=== PATIENT | female | born 1985 | race Caucasian/White ===

== ENCOUNTER 2017-05-16 10:40 | Emergency (ER) | payer OTHER ==
[~2017-05-16] VITALS: Ht 157.5 cm; Wt 90.7 kg
[2017-05-16 10:52] VITALS: BP_SYST 126
--- NOTE | 2017-05-16 11:18 | NUR ---
ER at bedside examining patient.
[2017-05-16 11:32] LABS: BILIRUBIN,URINE NEGATIVE (NEGATIVE); BLOOD, URINE 3+ (NEGATIVE); CLARITY/URINE SL HAZY (CLEAR); COLOR,URINE YELLOW (YELLOW); GLUCOSE,URINE NEGATIVE (NEGATIVE); KETONES,URINE NEGATIVE (NEGATIVE); LEUKOCYTE ESTERASE ,URINE TRACE (NEGATIVE); NITRITE, URINE NEGATIVE (NEGATIVE); PH,URINE 7.5 (5.0-8.0); PROTEIN URINE NEGATIVE (NEGATIVE); UROBILINOGEN,URINE 0.2 (0.2-1.0)
[2017-05-16 11:36] LABS: BACTERIA,URINE FEW /HPF (None Seen); MUCUS,URINE 1+ /LPF (None Seen)
[2017-05-16 11:53] LABS: BASOPHILS % (AUTO) 0.4 % (0.0-2.0); EOSINOPHILS % (AUTO) 0.8 % (0.0-4.0); HEMATOCRIT 36.8 % (36-48); HEMOGLOBIN 12.3 g/dL (12.0-16.0); LYMPHOCYTES % (AUTO) 33.3 % (20.5-51.5); MEAN CORPUSCULAR HEMOGLOBIN 28 pg (27-31); MEAN CORPUSCULAR HGB CONC 34 % (32-36); MEAN CORPUSCULAR VOLUME 83 fL (79.0-98.0); MONOCYTES # (AUTO) 0.4 K/uL (0.0-1.0); MONOCYTES % (AUTO) 6.1 % (1.7-9.3); NEUTROPHILS # (AUTO) 3.7 K/uL (1.8-7.7); NEUTROPHILS % (AUTO) 59.4 % (40.0-70.0); PLATELET COUNT (AUTO) 189 K/uL (130-430); RED BLOOD CELL COUNT(AUTO) 4.42 MIL/uL (4.2-6.2); RED CELL DISTRIBUTION WIDTH 13.2 % (9.0-15.0); WHITE BLOOD COUNT (AUTO) 6.1 K/uL (4.8-10.8)
--- NOTE | 2017-05-16 11:53 | NUR ---
Pelvic exam performed by Dr Aguirre with at bedside for entire examination. Patient tolerated procedure . Patient assisted to position of comfort after examination.
[2017-05-16 12:01] LABS: CALCIUM 8.8 mg/dL (8.4-11.0); CREATININE 0.48 mg/dL (0.55-1.30); POTASSIUM 3.5 mmol/L (3.5-5.1); PROTHROMBIN TIME 10.9 SECS (9.5-12.5)
[2017-05-16 12:27] LABS: ALBUMIN 3.6 g/dL (3.4-4.8); TOTAL BILIRUBIN 0.3 mg/dL (0.0-1.0)
[2017-05-16 13:02] VITALS: BP_SYST 122
--- NOTE | 2017-05-16 13:04 | NUR ---
Patient given written and verbal discharge instructions and verbalizes understanding. ER MD discussed with patient the results and treatment provided. Patient in stable condition. ID arm band removed. Rx of Macrobid given. Patient educated on pain management and to follow up with PMD. Pain Scale 0/10 Opportunity for questions provided and answered.
== END 2017-05-16 13:04 | disposition home or self-care (01) ==
LOC: SED 10:40
DX: O23.41 Unspecified infection of urinary tract in pregnancy, first trimester (principal); O20.9 Hemorrhage in early pregnancy, unspecified; Z3A.01 Less than 8 weeks gestation of pregnancy; Z88.0 Allergy status to penicillin; Z88.5 Allergy status to narcotic agent
CPT/HCPCS: 36415; 76805-TC; 80053; 81000-TC; 81025; 84702-TC; 85025; 85610-TC; 85730-TC; 87086; 99285

== ENCOUNTER 2017-06-21 09:41 | Emergency (ER) | payer OTHER ==
[~2017-06-21] VITALS: Ht 157.5 cm; Wt 92.5 kg
[2017-06-21 09:48] VITALS: BP_SYST 128
[2017-06-21 10:20] LABS: BILIRUBIN,URINE NEGATIVE (NEGATIVE); BLOOD, URINE 3+ (NEGATIVE); CLARITY/URINE CLEAR (CLEAR); COLOR,URINE YELLOW (YELLOW); GLUCOSE,URINE NEGATIVE (NEGATIVE); KETONES,URINE NEGATIVE (NEGATIVE); LEUKOCYTE ESTERASE ,URINE NEGATIVE (NEGATIVE); NITRITE, URINE NEGATIVE (NEGATIVE); PROTEIN URINE NEGATIVE (NEGATIVE); UROBILINOGEN,URINE 0.2 (0.2-1.0)
[2017-06-21 10:27] LABS: WBC,URINE 0-3 /HPF (0-3)
[2017-06-21 10:28] LABS: BACTERIA,URINE FEW /HPF (None Seen); MUCUS,URINE 1+ /LPF (None Seen)
[2017-06-21 11:03] LABS: BASOPHILS % (AUTO) 0.3 % (0.0-2.0); EOSINOPHILS # (AUTO) 0.1 K/uL (0.0-0.4); EOSINOPHILS % (AUTO) 1.1 % (0.0-4.0); HEMATOCRIT 37.5 % (36-48); HEMOGLOBIN 12.4 g/dL (12.0-16.0); LYMPHOCYTES # (AUTO) 2.1 K/uL (1.0-5.5); LYMPHOCYTES % (AUTO) 31.7 % (20.5-51.5); MEAN CORPUSCULAR HEMOGLOBIN 27 pg (27-31); MEAN CORPUSCULAR HGB CONC 33 % (32-36); MEAN CORPUSCULAR VOLUME 82 fL (79.0-98.0); MONOCYTES # (AUTO) 0.4 K/uL (0.0-1.0); MONOCYTES % (AUTO) 5.9 % (1.7-9.3); NEUTROPHILS # (AUTO) 4.1 K/uL (1.8-7.7); PLATELET COUNT (AUTO) 161 K/uL (130-430); RED CELL DISTRIBUTION WIDTH 12.9 % (9.0-15.0); WHITE BLOOD COUNT (AUTO) 6.7 K/uL (4.8-10.8)
[2017-06-21 11:16] LABS: CALCIUM 9.2 mg/dL (8.4-11.0); CREATININE 0.47 mg/dL (0.55-1.30); POTASSIUM 3.4 mmol/L (3.5-5.1)
[2017-06-21 11:20] LABS: PROTHROMBIN TIME 10.9 SECS (9.5-12.5)
[2017-06-21 11:42] LABS: ALBUMIN 3.7 g/dL (3.4-4.8); TOTAL BILIRUBIN 0.4 mg/dL (0.0-1.0)
[2017-06-21] MEDS ORDERED: POTASSIUM CHLORIDE 20 MEQ/PKT PACKET PO ONE (12:00)
[2017-06-21 12:30] VITALS: BP_SYST 120
== END 2017-06-21 12:31 | disposition home or self-care (01) ==
LOC: SED 09:41
DX: O20.0 Threatened abortion (principal); Z3A.12 12 weeks gestation of pregnancy; Z88.0 Allergy status to penicillin; Z88.5 Allergy status to narcotic agent
CPT/HCPCS: 36415; 76805-TC; 80053; 81000-TC; 81025; 84702-TC; 85025; 85610-TC; 85730-TC; 86900; 86901; 99285

== ENCOUNTER 2019-04-13 13:30 | Emergency (ER) | payer OTHER ==
[~2019-04-13] VITALS: Ht 157.5 cm; Wt 89.4 kg
[2019-04-13 13:38] VITALS: BP_SYST 140
--- NOTE | 2019-04-13 13:44 | NUR ---
Placed in room 5. To gown for exam. Side rails up. Report given to Gladys BEARD.
--- NOTE | 2019-04-13 13:48 | NUR ---
ER Dr. Ch at bedside examining patient.
[2019-04-13] MEDS ORDERED: NACL 0.9% 1,000 ML IV ONE (13:51)
--- NOTE | 2019-04-13 13:55 | NUR ---
Pt AAOx4 ~5 weeks , M2, c/o dizziness and nausea today. Pt denies abd pain. Skin pink dry and warm, breathing even and unlabored. No other injuries/complaints per pt/noted. Will cotinue to monitor.
[2019-04-13] MEDS ORDERED: ONDANSETRON HCL 4 MG/2 ML VIAL IVP ONE (14:00)
--- NOTE | 2019-04-13 14:09 | NUR ---
Pt taken to radiology via wheelchair in stable condition
[2019-04-13 14:25] LABS: BASOPHILS % (AUTO) 0.4 % (0.0-2.0); EOSINOPHILS % (AUTO) 0.5 % (0.0-4.0); HEMATOCRIT 37.1 % (36-48); HEMOGLOBIN 12.6 g/dL (12.0-16.0); LYMPHOCYTES # (AUTO) 2.1 K/uL (1.0-5.5); LYMPHOCYTES % (AUTO) 39.1 % (20.5-51.5); MEAN CORPUSCULAR HEMOGLOBIN 28 pg (27-31); MEAN CORPUSCULAR HGB CONC 34 % (32-36); MEAN CORPUSCULAR VOLUME 83 fL (79.0-98.0); MONOCYTES # (AUTO) 0.4 K/uL (0.0-1.0); MONOCYTES % (AUTO) 7.7 % (1.7-9.3); NEUTROPHILS # (AUTO) 2.8 K/uL (1.8-7.7); NEUTROPHILS % (AUTO) 52.3 % (40.0-70.0); PLATELET COUNT (AUTO) 182 K/uL (130-430); RED BLOOD CELL COUNT(AUTO) 4.49 MIL/uL (4.2-6.2); RED CELL DISTRIBUTION WIDTH 15.2 % (9.0-15.0); WHITE BLOOD COUNT (AUTO) 5.4 K/uL (4.8-10.8)
[2019-04-13 14:37] LABS: CALCIUM 8.5 mg/dL (8.4-11.0); CREATININE 0.41 mg/dL (0.55-1.30)
[2019-04-13 14:40] LABS: PROTHROMBIN TIME 10.4 SECS (9.5-12.5)
[2019-04-13 14:49] LABS: POTASSIUM 2.8 mmol/L (3.5-5.1)
[2019-04-13 15:02] LABS: ALBUMIN 3.3 g/dL (3.4-4.8); TOTAL BILIRUBIN 0.4 mg/dL (0.0-1.0)
[2019-04-13] MEDS ORDERED: KCL 20 mEq in NS 1000 mL 1,000 ML IV ONE (15:15)
[2019-04-13] MEDS ORDERED: POTASSIUM CHLORIDE 10 MEQ TAB.PRT.SR PO ONE (15:15)
--- NOTE | 2019-04-13 15:57 | NUR ---
Pt moved to bed 01
--- NOTE | 2019-04-13 16:20 | NUR ---
PT requested to leave despite receving 150mL of KCL IV. Per MD Ch, OK to discharge, but information for potassium rich diet will be provided.
--- NOTE | 2019-04-13 16:32 | NUR ---
Patient given written and verbal discharge instructions and verbalizes understanding. ER MD Ch discussed with patient the results and treatment provided. Patient in stable condition. ID arm band removed. IV catheter removed intact and dressing applied, no active bleeding. Rx of Tylenol given. Patient educated on pain management and to follow up with PMD. Pain Scale 0. Pt instructed to icnrease potassium in diet; information provided on potassium rich food options. Opportunity for questions provided and answered. Medication side effect fact sheet provided.
[2019-04-13 16:33] VITALS: BP_SYST 136
== END 2019-04-13 16:33 | disposition home or self-care (01) ==
LOC: SED 13:30
DX: O9A.211 Injury, poisoning and certain other consequences of external causes complicating pregnancy, first trimester (principal); S39.011A Strain of muscle, fascia and tendon of abdomen, initial encounter; Z88.0 Allergy status to penicillin; Z88.5 Allergy status to narcotic agent; Z3A.01 Less than 8 weeks gestation of pregnancy; X58.XXXA Exposure to other specified factors, initial encounter; Y93.89 Activity, other specified; Y92.89 Other specified places as the place of occurrence of the external cause; Y99.8 Other external cause status
CPT/HCPCS: 36415; 76801; 76817; 80053; 81002; 81025; 82150; 83690; 84702; 85025; 85610; 85730; 96365; 96375; 99284; J2405; J7030; J3480